=== PATIENT | female | born 2000 | race Caucasian/White ===

== ENCOUNTER 2021-12-01 15:50 | Inpatient (IN) | payer SELFPAY ==
[~2021-12-01] VITALS: Ht 152.4 cm; Wt 55.8 kg
[2021-12-01] MEDS ORDERED: ONDANSETRON HCL 4MG/2ML INJ IV STA (16:47)
[2021-12-01] MEDS ORDERED: KETOROLAC 30MG/ML VIAL IV STA (16:47)
[2021-12-01] MEDS ORDERED: SODIUM CHLORIDE 0.9% 1,000 ML IV ONE (17:00)
[2021-12-01 17:19] LABS: HEMATOCRIT. 27.8 % (36.0-48.0); MEAN CORPUSCULAR HEMOGLOBIN 24.7 pg (28.0-32.0); MEAN CORPUSCULAR VOLUME 76.6 fL (81.0-99.0); MEAN PLATELET VOLUME 7.7 fl (7.4-10.4); PLATELET 466 x1000/uL (130-400); RED BLOOD CELL COUNT 3.62 mill/uL (4.2-5.4)
[2021-12-01 17:24] LABS: CHLORIDE 101 mEq/L (98-107)
[2021-12-01 17:30] LABS: ETHANOL BLOOD < 10 mg/dL
[2021-12-01 17:42] LABS: HCG SCREEN NEGATIVE
[2021-12-01 19:04] LABS: CLARITY URINE CLEAR (CLEAR); COLOR URINE YELLOW (YELLOW); KETONES URINE TRACE (NEGATIVE); LEUKOCYTE ESTERASE URINE 1+ (NEGATIVE); NITRITE URINE NEGATIVE (NEGATIVE); OCCULT BLOOD URINE NEGATIVE (NEGATIVE); PH URINE 6.5 (4.5-8.0); PROTEIN URINE 1+ (NEGATIVE); SPECIFIC GRAVITY URINE 1.073 (1.005-1.030)
[2021-12-01 19:14] LABS: *BARBITURATES SCREEN URINE NEGATIVE (NEGATIVE); *BENZODIAZEPINES SCREEN URINE NEGATIVE (NEGATIVE); *COCAINE SCREEN URINE NEGATIVE (NEGATIVE); METHADONE URINE SCREEN NEGATIVE (NEGATIVE)
[2021-12-01 19:15] LABS: *AMPHETAMINES SCREEN URINE NEGATIVE (NEGATIVE); OPIATES URINE SCREEN NEGATIVE (NEGATIVE); PHENCYCLIDINE URINE SCREEN NEGATIVE (NEGATIVE)
[2021-12-01 19:18] LABS: CANNABINOID URINE SCREEN PRESUMTIVE POSITIVE (NEGATIVE)
[2021-12-01 19:42] LABS: PLATELET ESTIMATE INCREASED
[2021-12-01] MEDS ORDERED: ONDANSETRON HCL 4MG/2ML INJ IV NR (19:45)
[2021-12-01] MEDS ORDERED: LEVOFLOXACIN 500MG PREMIX 100 ML IV NR (20:00)
[2021-12-01] MEDS ORDERED: METRONIDAZOLE 500 MG PREMIX 100 ML IV NR (20:00)
[2021-12-01] MEDS ORDERED: MORPHINE SULFATE 4 MG/ML CPJ (NOT FOR IM USE) IV NR (20:00)
[2021-12-01] MEDS ORDERED: IOHEXOL-300 100 ML BOTTLE ONE (20:42)
[2021-12-02] VITALS: BP 104/62
[2021-12-02] MEDS ORDERED: ONDANSETRON HCL 4MG/2ML INJ IV PRN (01:00)
[2021-12-02] MEDS ORDERED: RISP2 MT (01:48)
[2021-12-02] MEDS ORDERED: TRAZ-251 MT (01:48)
[2021-12-02] MEDS: MORPHINE SULFATE 2 MG/ML CPJ (NOT FOR IM USE) IV PRN ×2 (02:44→19:00)
[2021-12-02 03:21] VITALS: BP 104/62
[2021-12-02 04:00] VITALS: BP 111/65
[2021-12-02] MEDS: KCL 20MEQ/100ML PREMIX 100 ML IV SCH ×2 (04:05→04:30)
[2021-12-02] MEDS: DEXT 5%/0.9% NACL 1,000 ML IV SCH ×2 (04:05→21:00)
[2021-12-02] MEDS ORDERED: INFLUENZA VACCINE 05/PF 0.5 ML SYRINGE IM ONE (04:15)
[2021-12-02] MEDS ORDERED: PIPERACILLIN/TAZOBACTAM 3.375GM/50ML PREMIX IV ONE (06:00)
[2021-12-02] MEDS: PIPERACILLIN/TAZOBACTAM 3.375G in DEXT 5% WATER 50ML IV SCH ×3 (06:12→21:32)
[2021-12-02 08:00] VITALS: BP 92/52
[2021-12-02 12:00] VITALS: BP 110/74
[2021-12-02 16:00] VITALS: BP 105/62
[2021-12-02 18:04] LABS: HEMATOCRIT. 24.3 % (36.0-48.0); HEMOGLOBIN. 7.8 g/dL (12.0-16.0); MEAN CORPUSCULAR HEMOGLOBIN 25.3 pg (28.0-32.0); MEAN CORPUSCULAR VOLUME 78.5 fL (81.0-99.0); MEAN PLATELET VOLUME 7.6 fl (7.4-10.4); PLATELET 387 x1000/uL (130-400); RED CELL DISTRIBUTION WIDTH 17.8 % (11.6-14.6)
[2021-12-02 18:32] LABS: CHLORIDE 108 mEq/L (98-107)
[2021-12-02] MEDS: RISPERIDONE 1MG TABLET PO SCH (23:30)
[2021-12-03 04:01] LABS: PLATELET ESTIMATE NORMAL
[2021-12-03] MEDS: PIPERACILLIN/TAZOBACTAM 3.375G in DEXT 5% WATER 50ML IV SCH ×3 (05:32→22:27)
[2021-12-03] MEDS: DEXT 5%/0.9% NACL 1,000 ML IV SCH ×2 (06:54→17:36)
[2021-12-03 08:00] VITALS: BP 124/65
[2021-12-03] MEDS: RISPERIDONE 1MG TABLET PO SCH (09:34)
[2021-12-03] MEDS ORDERED: LACTULOSE 20G/30ML UDC PO NR ×2 (10:45→16:00)
[2021-12-03 12:00] VITALS: BP 109/71
[2021-12-03 12:35] LABS: BASOPHILS % 0.3 % (0.0-2.0); EOSINOPHILS % 0.3 % (0.0-5.0); HEMATOCRIT. 25.7 % (36.0-48.0); HEMOGLOBIN. 8.2 g/dL (12.0-16.0); LYMPHOCYTES % 21.6 % (20.0-50.0); MEAN CORPUSCULAR HEMOGLOBIN 25.1 pg (28.0-32.0); MEAN CORPUSCULAR VOLUME 78.7 fL (81.0-99.0); MEAN PLATELET VOLUME 7.2 fl (7.4-10.4); MONOCYTES % 11.4 % (2.0-8.0); NEUTROPHILS % 66.4 % (40.0-76.0); PLATELET 423 x1000/uL (130-400); RED BLOOD CELL COUNT 3.26 mill/uL (4.2-5.4); RED CELL DISTRIBUTION WIDTH 17.7 % (11.6-14.6)
[2021-12-03 13:14] LABS: CHLORIDE 105 mEq/L (98-107)
[2021-12-03 16:00] VITALS: BP 118/75
[2021-12-03] MEDS: MORPHINE SULFATE 2 MG/ML CPJ (NOT FOR IM USE) IV PRN ×2 (19:12→23:29)
[2021-12-03 20:00] VITALS: BP 109/62
[2021-12-03] MEDS ORDERED: TRAZODONE HCL 50MG TABLET PO SCH (21:00)
[2021-12-04] VITALS: BP 118/79
[2021-12-04] MEDS: DEXT 5%/0.9% NACL 1,000 ML IV SCH (03:00)
[2021-12-04 04:00] VITALS: BP 118/75
[2021-12-04] MEDS: PIPERACILLIN/TAZOBACTAM 3.375G in DEXT 5% WATER 50ML IV SCH (05:38)
[2021-12-04 08:00] VITALS: BP 109/67
[2021-12-04] MEDS: RISPERIDONE 1MG TABLET PO SCH (08:11)
[2021-12-04] MEDS: MORPHINE SULFATE 2 MG/ML CPJ (NOT FOR IM USE) IV PRN (08:13)
[2021-12-04 12:00] VITALS: BP 113/64
[2021-12-04 12:09] VITALS: BP 113/64
== END 2021-12-04 16:35 | disposition home or self-care (01) | DRG 247 ==
LOC: ER 15:50 → 6EST 19:46 → EDBEDREQTM 19:49 → EDBEDREQ 19:49 → ENRESERV 21:57
PROVIDERS: ADMIT Family Medicine; ATTEND Family Medicine
DX: K56.600 Partial intestinal obstruction, unspecified as to cause (principal); U07.1 COVID-19; E46 Unspecified protein-calorie malnutrition; D64.9 Anemia, unspecified; D75.839 Thrombocytosis, unspecified; E87.6 Hypokalemia; F12.90 Cannabis use, unspecified, uncomplicated; R73.9 Hyperglycemia, unspecified; K52.9 Noninfective gastroenteritis and colitis, unspecified; Z59.01 Sheltered homelessness; Z91.410 Personal history of adult physical and sexual abuse; Z98.891 History of uterine scar from previous surgery; Z68.24 Body mass index [BMI] 24.0-24.9, adult
CPT/HCPCS: 36415; 74018; 74177; 76830; 76856; 80053; 80305; 80320; 81003; 84703; 85025; 87426; 90686; 99285; J1885; J1956; J2270; J2405; J2543; J3480; J3490; J7030; J7042; J7060; Q9967; G0480

== ENCOUNTER 2021-12-04 17:51 | Emergency (ER) | payer SELFPAY ==
[~2021-12-04 17:51] MED LIST: RISP2 MT; TRAZ-251 MT
== END 2021-12-04 19:20 | disposition left against medical advice (07) ==
LOC: ER 17:51
DX: Z53.21 Procedure and treatment not carried out due to patient leaving prior to being seen by health care provider (principal)

== ENCOUNTER 2024-06-23 18:58 | Emergency (ER) | payer MEDICAID ==
[~2024-06-23] VITALS: Ht 157.5 cm; Wt 75.0 kg
[2024-06-23 19:01] VITALS: TEMP 98.2; O2SAT 100
[2024-06-23] MEDS: LORAZEPAM 1MG TABLET PO STA (19:40)
[2024-06-23 19:56] LABS: BASOPHILS % 0.5 % (0.0-2.0); DIFFERENTIAL COMMENT 0; HEMATOCRIT. 32.7 % (36.0-48.0); HEMOGLOBIN. 10.7 g/dL (12.0-16.0); LYMPHOCYTES % 33.7 % (20.0-50.0); MEAN CORPUSCULAR HEMOGLOBIN 25.7 pg (28.0-32.0); MEAN CORPUSCULAR HGB CONC 32.8 g/dL (31.0-37.0); MEAN CORPUSCULAR VOLUME 78.3 fL (81.0-99.0); MEAN PLATELET VOLUME 7.7 fl (7.4-10.4); NEUTROPHILS % 56.8 % (40.0-76.0); PLATELET 453 x1000/uL (130-400); RED BLOOD CELL COUNT 4.18 mill/uL (4.2-5.4); RED CELL DISTRIBUTION WIDTH 18.3 % (11.6-14.6); WHITE BLOOD COUNT 8.7 x1000/uL (4.5-11.0)
[2024-06-23 20:06] LABS: HCG SCREEN NEGATIVE
[2024-06-23 20:07] LABS: CHLORIDE 107 mEq/L (98-107); POTASSIUM 3.4 mEq/L (3.5-5.1); SODIUM 139 mEq/L (136-145)
[2024-06-23 20:08] LABS: CALCIUM 9.7 mg/dL (8.7-10.4); CARBON DIOXIDE 21 mEq/L (21-32)
[2024-06-23 20:13] LABS: CREATININE 0.8 mg/dL (0.6-1.0); GLUCOSE 112 mg/dL (70-105); UREA NITROGEN BLOOD 18 mg/dL (9-23)
[2024-06-23 20:16] LABS: ETHANOL BLOOD < 10 mg/dL (<10)
[2024-06-23 20:37] LABS: CLARITY URINE TURBID (CLEAR); COLOR URINE DARK YELLOW (YELLOW); GLUCOSE URINE NEGATIVE (NEGATIVE); KETONES URINE TRACE (NEGATIVE); LEUKOCYTE ESTERASE URINE NEGATIVE (NEGATIVE); NITRITE URINE NEGATIVE (NEGATIVE); OCCULT BLOOD URINE NEGATIVE (NEGATIVE); PROTEIN URINE 1+ (NEGATIVE); SPECIFIC GRAVITY URINE 1.035 (1.005-1.030)
[2024-06-23 20:39] LABS: *AMPHETAMINES SCREEN URINE PRESUMPTIVE POSITIVE (NEGATIVE); *BARBITURATES SCREEN URINE NEGATIVE (NEGATIVE); *BENZODIAZEPINES SCREEN URINE NEGATIVE (NEGATIVE); *COCAINE SCREEN URINE NEGATIVE (NEGATIVE)
[2024-06-23 20:40] LABS: CANNABINOID URINE SCREEN PRESUMPTIVE POSITIVE (NEGATIVE); ECSTASY MDMA SCREEN URINE NEGATIVE (NEGATIVE); METHADONE URINE SCREEN NEGATIVE (NEGATIVE); OPIATES URINE SCREEN PRESUMPTIVE POSITIVE (NEGATIVE); PHENCYCLIDINE URINE SCREEN NEGATIVE (NEGATIVE)
[2024-06-23 20:49] LABS: BACTERIA URINE 3+; RBC URINE 0-2 /hpf (0-2); SQUAMOUS EPITHELIAL CELL URINE 3+ /lpf (RARE/1+); WBC URINE 0-2 /hpf (0-2)
[2024-06-23 20:51] LABS: YEAST URINE RARE
[2024-06-23 21:10] VITALS: BP 120/70; PULSE 80; RESP 15
== END 2024-06-23 21:13 | disposition home or self-care (01) ==
LOC: ER 18:58
DX: F41.0 Panic disorder [episodic paroxysmal anxiety] (principal); F41.1 Generalized anxiety disorder; G40.909 Epilepsy, unspecified, not intractable, without status epilepticus; F12.90 Cannabis use, unspecified, uncomplicated; F15.90 Other stimulant use, unspecified, uncomplicated; I10 Essential (primary) hypertension; J45.909 Unspecified asthma, uncomplicated
CPT/HCPCS: 36415; 80048; 80305; 80320; 81003; 81025; 84703; 85025; 99283; G0480

== ENCOUNTER 2024-06-23 21:52 | Emergency (ER) | payer MEDICAID ==
[~2024-06-23] VITALS: Ht 154.9 cm; Wt 65.0 kg
[2024-06-23 22:42] VITALS: BP 116/81; PULSE 70; RESP 18; TEMP 98; O2SAT 99
== END 2024-06-24 01:00 | disposition left against medical advice (07) ==
LOC: ER 21:52
DX: Z53.21 Procedure and treatment not carried out due to patient leaving prior to being seen by health care provider (principal)